=== PATIENT | female | born 2000 | race Two or more races ===

== ENCOUNTER 2023-12-16 09:57 | Emergency (ER) | payer OTHER ==
[~2023-12-16] VITALS: Ht 162.6 cm; Wt 98.5 kg
[2023-12-16 10:15] VITALS: BP 115/73; PULSE 67; RESP 18; TEMP 98.5; O2SAT 95
[2023-12-16] MEDS ORDERED: NABU-72 PO (11:50)
== END 2023-12-16 11:55 | disposition home or self-care (01) ==
LOC: ER 09:57
DX: M77.8 Other enthesopathies, not elsewhere classified (principal)
CPT/HCPCS: 29125; 73110